=== PATIENT | male | born 1945 | race Caucasian/White ===

== ENCOUNTER 2018-10-16 10:12 | Outpatient (CLI) | payer MEDICARE | END 2018-10-16 23:59 | disposition home or self-care (01) | LOC: CFH 10:12 | PROVIDERS: ATTEND Radiology Radiation Oncology | DX: Z08 Encounter for follow-up examination after completed treatment for malignant neoplasm (principal); Z85.46 Personal history of malignant neoplasm of prostate | CPT/HCPCS: 36415; 84153 ==

== ENCOUNTER → 2018-10-16 | Outpatient (CLI) | payer MEDICARE ==
[~2018-10-16] MED LIST: ACET325T21 PO; ASPI-650 PO; FLUT16SP NAS; LEVO25TA2 PO; LIPA1CAP19 PO; MECL12.5 PO; NAPR-856 PO; SODI45SP4 NAS; TERA1CAP3 PO
== END | disposition home or self-care (01) ==
LOC: ROC 07:47
PROVIDERS: ATTEND Radiology Radiation Oncology
DX: C61 Malignant neoplasm of prostate (principal); N32.81 Overactive bladder; I10 Essential (primary) hypertension
CPT/HCPCS: G0463